=== PATIENT | male | born 1945 | race Caucasian/White ===

== ENCOUNTER → 2018-03-31 | Outpatient (CLI) | payer OTHER | LOC: FIMAGING 13:42 | PROVIDERS: ATTEND Orthopaedic Surgery | DX: Z01.818 Encounter for other preprocedural examination (principal); M17.11 Unilateral primary osteoarthritis, right knee ==

== ENCOUNTER 2018-04-26 05:57 | Observation (INO) | payer OTHER ==
[2018-04-26] MEDS ORDERED: ROPIVACAINE 0.2% 80 MG, EPINEPHrine 0.2 MG, KETOROLAC TROMETHAMINE 30 MG in SYRINGE 0 ML IU ONE (06:00)
[2018-04-26] MEDS ORDERED: TRANEXAMIC ACID 3,000 MG in NS (SYRINGE) 50 ML IRR ONE (06:00)
[2018-04-26] MEDS ORDERED: ceFAZolin 2 GM/DEXTROSE 100 ML IV ONE (06:11)
[2018-04-26] MEDS ORDERED: ACETAMINOPHEN 325 MG TAB PO ONE (06:11)
[2018-04-26] MEDS ORDERED: FAMOTIDINE 20 MG TAB PO ONE (06:11)
[2018-04-26] MEDS ORDERED: LR 1,000 ML IV ONE (06:12)
[2018-04-26] MEDS ORDERED: LIDOCAINE 1% 2 ML INJ ID PRN (06:12)
[2018-04-26] MEDS ORDERED: TRANEXAMIC ACID 3,000 MG/50 ML BAG IRR ONE (06:41)
[2018-04-26] MEDS ORDERED: MIDAZOLAM 2 MG/2 ML VIAL ONE (06:59)
[2018-04-26] MEDS ORDERED: MIDAZOLAM 2 MG/2 ML VIAL IVP ONE (07:01)
--- NOTE | 2018-04-26 07:02 | PDANEPAE ---
ANE History of Present Illness r knee oa ANE Past Medical History - Cardiovascular History Hx Hypertension: Yes Hx Arrhythmias: No Hx Chest Pain: No Hx Coronary Artery / Peripheral Vascular Disease: No Hx CHF / Valvular Disease: No Hx Palpitations: No Cardiovascular History Comment: HYPERLIPIDEMIA - Pulmonary History Hx COPD: No Hx Asthma/Reactive Airway Disease: No Hx Recent Upper Respiratory Infection: No Hx Oxygen in Use at Home: No Hx Sleep Apnea: No Sleep Apnea Screening Result - Last Documented: Positive - Neurologic History Hx Cerebrovascular Accident: No Hx Seizures: No Hx Dementia: No Neurologic History Comment: PERIHERAL NEUROPATHY L FOOT - Endocrine History Hx Diabetes: Yes Endocrine History Comment: DM II. A1C FROM 7.7 DOWN TO 6.4 IN 2 MONTHS - Renal History Hx Renal Disorders: No Renal History Comment: KIDNEY INF IN PAST - Liver History Hx Hepatic Disorders: No Hepatic History Comment: CHOLECYSTECTOMY - Neurological & Psychiatric Hx Hx Neurological and Psychiatric Disorders: No - Cancer History Hx Cancer: Yes Cancer History Comment: SKIN CA REMOVAL X2 - Congenital Disorder History Hx Congenital Disorders: No - GI History Hx Gastrointestinal Disorders: No - Other Health History Other Health History: ENCEPHALITIS 1964 - Chronic Pain History Chronic Pain: Yes (R KNEE) - Surgical History Prior Surgeries: CHOLECYSTECTOMY. SCOPE ACL L. TUMOR SALIVA GLANDS. FX ANKLE REPAIR L ANE Review of Systems Review of Systems: - Exercise capacity METS (RN): 5 METS ANE Patient History - Allergies Allergies/Adverse Reactions: No Known Allergies Allergy (Verified 07/17/15 19:24) - Home Medications Home Medications: Metoprolol Tartrate [Lopressor 100 mg (*)] 100 mg PO HS 06/03/11 [Last Taken 1 Day Ago ~04/25/18] amLODIPine BESYLATE [Norvasc 10 mg (*)] 10 mg PO DAILY 06/03/11 [Last Taken 09/03 05:00] metFORMIN HCL [Glucophage 500 mg (*)] 500 mg PO DAILY 07/17/15 [Last Taken 2 Days Ago ~04/24/18] Aspirin [Aspirin 81mg (*)] 81 mg PO HS 03/22/18 [Last Taken 1 Week Ago ~04/19/18 ] Cyanocobalamin [Vitamin B12 (*)] 1,000 mcg PO DAILY 03/22/18 [Last Taken 2 Weeks Ago ~04/12/18] Doxazosin Mesylate 6 mg PO HS 03/22/18 [Last Taken 1 Day Ago ~04/25/18] Glucosamine/Chondroitin [Glucosamine/Chondroitin (*)] 1 each PO BID 03/22/18 [ Last Taken 2 Weeks Ago ~04/12/18] Herbals/Supplements -Info Only 1 ea PO DAILY 03/22/18 [Last Taken 2 Weeks Ago ~ 04/12/18] Insulin NPH Hum/Reg Insulin Hm [Novolin 70-30 100 Unit/ml Vial] 50 unit SQ DAILY 03/22/18 [Last Taken 04/25/18 17:00] Insulin NPH Hum/Reg Insulin Hm [Novolin 70-30 100 Unit/ml Vial] 52 unit SQ DAILY @1830 03/22/18 [Last Taken Unknown] Losartan/Hydrochlorothiazide [Losartan-Hctz 100-25 mg Tab] 1 each PO DAILY 03/22 [Last Taken 1 Day Ago ~04/25/18] Multivitamins [Multivitamin (*)] 1 each PO DAILY 03/22/18 [Last Taken 2 Weeks Ago ~04/12/18] - NPO status NPO Since - Liquids (Date): 04/25/18 NPO Since - Liquids (Time): 22:30 NPO Since - Solids (Date): 04/25/18 NPO Since - Solids (Time): 18:30 - Smoking Hx Smoking Status: Never smoked - Family Anes Hx Family Hx Anesthesia Complications: NEG ANE Labs/Vital Signs - Vital Signs Blood Pressure: 140/79 Heart Rate: 64 Respiratory Rate: 18 O2 Sat (%): 96 Height: 189.23 cm Weight: 115.212 kg ANE Physical Exam - Airway Neck exam: FROM Mallampati Score: Class 2 Mouth exam: normal dental/mouth exam - Pulmonary Pulmonary: no respiratory distress - Cardiovascular Cardiovascular: regular rate and rhythym - ASA Status ASA Status: II ANE Anesthesia Plan Anesthesia Plan: MAC, spinal Regional Anesthesia: adductor canal FNB
[2018-04-26] MEDS ORDERED: fentaNYL 100 MCG/2 ML INJ ONE (07:07)
[2018-04-26] MEDS ORDERED: ONDANSETRON 4 MG/2 ML VIAL ONE (07:07)
[2018-04-26] MEDS ORDERED: PROPOFOL/EMULSION 500 MG/50 ML BOTTLE IV ONE (07:07)
[2018-04-26] MEDS ORDERED: DEXAMETHASONE 4 MG/ML VIAL ONE (07:07)
--- NOTE | 2018-04-26 07:15 | PDHPUP ---
History & Physical Update H&P update statement: This history and physical update is based on an assessment of the patient which was completed after admission or registration (within 24 hours), but prior to the surgery/procedure. H&P update: H&P reviewed & patient examined, no change in patient's condition since H&P completed
[2018-04-26] MEDS ORDERED: VANCOMYCIN 1 GM VIAL ONE (07:46)
[2018-04-26] MEDS ORDERED: fentaNYL 100 MCG/2 ML INJ IVP PRN (07:48)
[2018-04-26] MEDS ORDERED: oxyCODONE IR 5 MG TAB PO PRN (07:48)
[2018-04-26] MEDS ORDERED: ONDANSETRON 4 MG/2 ML VIAL IVP PRN ×2 (07:48→08:45)
[2018-04-26] MEDS ORDERED: NALOXONE HCL 0.4 MG/ML INJ IVP PRN (07:48)
[2018-04-26] MEDS ORDERED: HYDROmorphONE/DILAUDID 1 MG/ML INJ IVP PRN (07:48)
[2018-04-26] MEDS ORDERED: PROMETHAZINE HCL 25 MG/ML INJ IVP PRN ×2 (07:48→08:45)
[2018-04-26] MEDS ORDERED: ROPIVACAINE HCL 150 MG/30 ML INJ ONE (08:14)
[2018-04-26] MEDS ORDERED: DIPHENOXYLATE/ATROPINE LOMOTIL 1 TAB PO PRN (08:45)
[2018-04-26] MEDS ORDERED: D50W 25 GM/50 ML SYR IVP PRN (08:45)
[2018-04-26] MEDS ORDERED: BISACODYL 10 MG SUPP PR PRN (08:45)
[2018-04-26] MEDS ORDERED: TEMAZEPAM 15 MG CAP PO PRN (08:45)
[2018-04-26] MEDS ORDERED: LACTULOSE 20 GM/30 ML UDCUP PO PRN (08:45)
[2018-04-26] MEDS ORDERED: METOCLOPRAMIDE 10 MG/2 ML VIAL IVP PRN (08:45)
[2018-04-26] MEDS ORDERED: POLYETHYLENE GLYCOL 3350 17 GM PKT PO PRN (08:45)
[2018-04-26] MEDS ORDERED: CYCLOBENZAPRINE 10 MG TAB PO PRN (08:45)
[2018-04-26] MEDS ORDERED: ONDANSETRON DISINTEGRATING 4 MG TAB PO PRN (08:45)
[2018-04-26] MEDS ORDERED: diphenhydrAMINE 25 MG CAP PO PRN (08:45)
[2018-04-26] MEDS ORDERED: PROMETHAZINE HCL 25 MG SUPPR PR PRN (08:45)
[2018-04-26] MEDS ORDERED: MAGNESIUM HYDROXIDE 30 ML UDCUP PO PRN (08:45)
--- NOTE | 2018-04-26 08:45 | POSTOPPROG ---
Post Op Note Date of Operation: 04/26/18 Surgeon: Kadi Winstno Shipping Assistant: soha winston Anesthesiologist: dr. carmen Anesthesia: Spinal, Other (Specify) (adductor canal block) Pre-op Diagnosis: right knee OA Post-op Diagnosis: same Indication: right knee pain Procedure: R TKA robot assisted, computer mohamud and sensor assisted Findings: severe knee OA Inf/Abcess present in the surg proc area at time of surgery?: No EBL: 50-100
[2018-04-26] MEDS ORDERED: LR 1,000 ML IV SCH (09:00)
--- NOTE | 2018-04-26 09:03 | POSTANESTH ---
Post Anesthetic Evaluation Cardiovascular Status: Normal, Stable Respiratory Status: Normal, Stable Level of Consciousness/Mental Status: Can Participate in Eval Pain Control: Adequate, Prn Tx Ordered Nausea/Vomiting Control: Adequate, Prn Tx Ordered Complications Possibly Related to Anesthesia: None Noted
[2018-04-26] MEDS: ACETAMINOPHEN 325 MG TAB PO SCH ×3 (12:32→23:57)
[2018-04-26] MEDS: INSULIN REGULAR HUMAN 100 UNIT/ML UNIT SC SCH ×3 (12:34→21:10)
[2018-04-26] MEDS: INSULIN 70/30 HUMAN 100 UNIT/ML SYR SC SCH ×2 (12:45→18:26)
[2018-04-26] MEDS: SENNOSIDES/DOCUSATE SODIUM TAB PO SCH ×2 (12:45→21:04)
[2018-04-26] MEDS: ceFAZolin 2 GM/DEXTROSE 100 ML IV SCH ×2 (14:14→21:05)
[2018-04-26] MEDS: metFORMIN HCL 500 MG TAB PO SCH (15:54)
[2018-04-26] MEDS: oxyCODONE IR 5 MG TAB PO PRN (18:26)
[2018-04-26] MEDS ORDERED: DOXAZOSIN MESYLATE 4 MG TAB PO SCH (21:00)
[2018-04-26] MEDS ORDERED: METOPROLOL TARTRATE 100 MG TAB PO SCH (21:00)
[2018-04-26] MEDS: FAMOTIDINE 20 MG TAB PO SCH (21:04)
[2018-04-26] MEDS: ASPIRIN 81 MG CHEWABLE TAB PO SCH (21:04)
[2018-04-27] MEDS: ACETAMINOPHEN 325 MG TAB PO SCH (05:45)
[2018-04-27 07:25] VITALS: BP 150/99
[2018-04-27] MEDS: INSULIN REGULAR HUMAN 100 UNIT/ML UNIT SC SCH (07:59)
[2018-04-27] MEDS: ASPIRIN 81 MG CHEWABLE TAB PO SCH (08:09)
[2018-04-27] MEDS: metFORMIN HCL 500 MG TAB PO SCH (08:09)
[2018-04-27] MEDS: oxyCODONE IR 5 MG TAB PO PRN (08:10)
[2018-04-27] MEDS: SENNOSIDES/DOCUSATE SODIUM TAB PO SCH (08:11)
[2018-04-27] MEDS: FAMOTIDINE 20 MG TAB PO SCH (08:12)
[2018-04-27] MEDS: INSULIN 70/30 HUMAN 100 UNIT/ML SYR SC SCH ×2 (08:13→08:41)
[2018-04-27] MEDS ORDERED: LOSARTAN/HCTZ 50/12.5 1 TAB PO SCH (09:00)
--- NOTE | 2018-04-27 09:14 | SOAPPROG ---
SOAP Progress Note Assessment/Plan: Assessment: Patient is doing well POD 1 s/p R TKA Pain management: pain is well controlled on oral pain meds. VTE ppx: recommend aspirin 81 mg BID for 4 weeks, cont MINNIE and SCDs Anemia: level is expected initially postop. Asymptomatic. Continue to monitor D/c planning: d/c to home today pending release from PT Plan: 04/27/18 09:14 Subjective: Widge is doing well, denies SOB, chest pain and N/V. Objective: Vital Signs Temp Pulse Resp BP Pulse Ox 36.8 C 59 L 16 150/99 H 95 04/27/18 07:23 04/27/18 07:23 04/27/18 07:23 04/27/18 08:10 04/27/18 07:23 Laboratory Results 04/27/18 04:26 04/26/18 04/27/18 04/28/18 05:59 05:59 05:59 Intake Total 2050 Output Total 1150 Balance 900 RLE: incision dressing is clean and dry, NVI, +pf/df ICD10 Worksheet Patient Problems: Problems Problem Status Onset Primary localized osteoarthritis of right knee Acute
--- NOTE | 2018-04-27 10:56 | GDS ---
[f rep st] DISCHARGE SUMMARY ADMISSION DIAGNOSIS: Right knee osteoarthritis. DISCHARGE DIAGNOSIS: Right knee osteoarthritis. PROCEDURE: Right total knee arthroplasty, robotic-assisted, with computer navigation. VTE PROPHYLAXIS: Recommend aspirin 81 mg twice daily for 4 weeks. BRIEF DESCRIPTION OF HOSPITAL STAY: Patient was admitted for an elective joint arthroplasty. The pa gerardo tolerated the procedure well and has passed physical therapy. The patient was given appropriat e antibiotic prophylaxis and venous thromboembolism prophylaxis. The patient's pain was well control led on oral pain medication, patient was holding down food, and had urinated. Decision was made to d ischarge the patient. The patient was given post-operative prescriptions pre-operatively. PLAN: Follow up as scheduled in Dr. Li's office May 18 at 10:15. /[id number]/MODL
--- NOTE | 2018-04-27 11:01 | GOP ---
[f rep st] OPERATIVE REPORT DATE OF OPERATION: 04/26/2018 SURGEON: René Li MD DRILLING FLUIDS SPECIALIST: TROY Kate. ANESTHESIA: Spinal. PREOPERATIVE DIAGNOSIS: Right knee osteoarthritis. POSTOPERATIVE DIAGNOSIS: Right knee osteoarthritis. PROCEDURE PERFORMED: Right total knee arthroplasty with computer navigation, robotic assist. FINDINGS: Severe medial and patellofemoral osteoarthritis. ESTIMATED BLOOD LOSS: 30 mL. INDICATIONS: The patient is a 72-year-old male with severe and progressive pain and deformity of the right knee unresponsive to conservative care. The risks and benefits of surgical intervention were explained in detail. DESCRIPTION OF PROCEDURE: The patient was brought to the operative room and placed on the table in the supine position. Spinal anesthesia was induced without difficulty. A pneumatic tourniquet was applied about the right proximal thigh, and the leg was prepped and draped in a sterile fashion. The leg saldaña was applied. After exsanguination by elevation the tourniquet was inflated to 250 mmHg. Incision was made anterior medial from the tibial tuberosity to a point 2 cm proximal to the superior pole of the patella. Medial parapatellar arthrotomy was carried out from the superior pole of the patella and posteriorly in line with the fibers of the Type II VMO. The medial collateral ligament was elevated and the infrapatellar fat pad was resected. The patella was everted and the articular surface was excised. A 40 mm patellar button was placed. Attention was turned first to the distal aspect of the femur. After exposure of the femur, 2 half pins were placed for fixation of the femoral array. In a similar fashion, 2 pins were placed anteromedial on the tibia for fixation of the tibial array. External land marking and registration of the hip center was performed without difficulty. Internal femoral and tibial registration was carried out without difficulty and the femoral and tibial checkpoints were placed and verified for accuracy. Attention was turned to the femur. The foot print for the size 6 femoral component was cut with the saw using the [employer] robotic system and verified for accuracy against the CT based plan. In a similar fashion, the saw was used to cut the footprint for the size 7 tibial component using the [employer] system and verified for accuracy against the CT based plan. The tibial articular surface was excised without difficulty, followed by the intercondylar box cut. The knee was extended and the remnants of the medial and lateral meniscus were excised. The posterior capsule was injected with ropivacaine, epinephrine and Toradol. A size 7 tibial tray was positioned. Trial reduction was then carried out. There was excellent range of motion, alignment, and stability using the 7 x 9 mm polyethylene. All trials were then removed. The joint was thoroughly irrigated and carefully dried. The X3 PressFit patella and femoral components, cemented tibial component were implanted. The permanent 9 mm polyethylene was placed without difficulty. The tourniquet was deflated and all bleeders were coagulated. The wound was thoroughly irrigated and closed using interrupted sutures of 2-0 Vicryl for the joint capsule. The subcu was closed with 3-0 Vicryl and the skin with 4-0 Monocryl. Dermabond and Steri-Strips were applied followed by a compressive dressing. The patient was then moved from the operating room to the recovery room in good condition, having tolerated the procedure well. /[id number]/MODL MTDD
== END 2018-04-27 11:21 | disposition home or self-care (01) ==
LOC: F3N 05:57
PROVIDERS: ADMIT Orthopaedic Surgery; ATTEND Orthopaedic Surgery
PROC: 8E0Y0CZ Robotic Assisted Procedure of Lower Extremity, Open Approach (ICD-10-PCS; principal; 2018-04-26 07:15)
PROC: 8E0YXBG Computer Assisted Procedure of Lower Extremity, With Computerized Tomography (ICD-10-PCS; principal; 2018-04-26 07:15)
PROC: 0SRC069 Replacement of Right Knee Joint with Oxidized Zirconium on Polyethylene Synthetic Substitute, Cemented, Open Approach (ICD-10-PCS; principal; 2018-04-26 07:15)
DX: M17.11 Unilateral primary osteoarthritis, right knee (principal); E78.5 Hyperlipidemia, unspecified; E11.43 Type 2 diabetes mellitus with diabetic autonomic (poly)neuropathy; G62.9 Polyneuropathy, unspecified; Z85.828 Personal history of other malignant neoplasm of skin
CPT/HCPCS: 27447; 73560; 88311; 97110; 97116; 97161; C1713; C1776; G0378; J0171; J0690; J1100; J1815; J1885; J2250; J2405; J2704; J2795; J3010; J3370

== ENCOUNTER → 2018-08-08 | Outpatient (CLI) | payer OTHER | LOC: FIMAGING 09:55 | PROVIDERS: ATTEND Orthopaedic Surgery | DX: M17.12 Unilateral primary osteoarthritis, left knee (principal) ==

== ENCOUNTER 2018-08-23 06:29 | Observation (INO) | payer OTHER ==
[~2018-08-23 06:29] MED LIST: ROPIVACAINE 0.2% 80 MG, EPINEPHrine 0.2 MG in SYRINGE 0 ML IU ONE; TRANEXAMIC ACID 3,000 MG in NS (SYRINGE) 50 ML IRR ONE
[2018-08-23] MEDS ORDERED: FAMOTIDINE 20 MG TAB PO ONE (06:41)
[2018-08-23] MEDS ORDERED: DEXAMETHASONE 4 MG/ML VIAL IVP ONE (06:41)
[2018-08-23] MEDS ORDERED: ACETAMINOPHEN 325 MG TAB PO ONE (06:41)
[2018-08-23] MEDS ORDERED: ceFAZolin 2 GM/DEXTROSE 100 ML IV ONE (06:41)
[2018-08-23] MEDS ORDERED: LR 1,000 ML IV ONE (06:42)
[2018-08-23] MEDS ORDERED: LIDOCAINE 1% 2 ML INJ ID PRN (06:42)
[2018-08-23] MEDS ORDERED: TRANEXAMIC ACID 3,000 MG/50 ML BAG IRR ONE (06:56)
[2018-08-23] MEDS ORDERED: VANCOMYCIN 1 GM VIAL ONE (07:23)
[2018-08-23] MEDS ORDERED: PROPOFOL/EMULSION 500 MG/50 ML BOTTLE IV ONE (08:55)
[2018-08-23] MEDS ORDERED: ONDANSETRON 4 MG/2 ML VIAL IVP PRN ×2 (09:16→10:41)
[2018-08-23] MEDS ORDERED: NALOXONE HCL 0.4 MG/ML INJ IVP PRN (09:16)
[2018-08-23] MEDS ORDERED: ALBUTEROL 3 ML DEYVIAL IH PRN (09:16)
--- NOTE | 2018-08-23 09:16 | PDANEPAE ---
ANE Past Medical History - Cardiovascular History Hx Hypertension: Yes Hx Arrhythmias: No Hx Chest Pain: No Hx Coronary Artery / Peripheral Vascular Disease: No Hx CHF / Valvular Disease: No Hx Palpitations: No Cardiovascular History Comment: HYPERLIPIDEMIA - Pulmonary History Hx COPD: No Hx Asthma/Reactive Airway Disease: No Hx Recent Upper Respiratory Infection: No Hx Oxygen in Use at Home: No Hx Sleep Apnea: No Sleep Apnea Screening Result - Last Documented: Positive Pulmonary History Comment: keven triggers - Neurologic History Hx Cerebrovascular Accident: No Hx Seizures: No Hx Dementia: No Neurologic History Comment: PERIHERAL NEUROPATHY L FOOT - Endocrine History Hx Diabetes: Yes Endocrine History Comment: DM II. A1C FROM 7.7 DOWN TO 6.4 IN 2 MONTHS - Renal History Hx Renal Disorders: No Renal History Comment: KIDNEY INF IN PAST - Liver History Hx Hepatic Disorders: No Hepatic History Comment: CHOLECYSTECTOMY - Neurological & Psychiatric Hx Hx Neurological and Psychiatric Disorders: No - Cancer History Hx Cancer: Yes Cancer History Comment: SKIN CA REMOVAL X2 - Congenital Disorder History Hx Congenital Disorders: No - GI History Hx Gastrointestinal Disorders: No Gastrointestinal History Comment: constipation - Other Health History Other Health History: ENCEPHALITIS 1964 - Chronic Pain History Chronic Pain: Yes (R KNEE) - Surgical History Prior Surgeries: CHOLECYSTECTOMY. SCOPE ACL L. TUMOR SALIVA GLANDS. FX ANKLE REPAIR L ANE Review of Systems Review of Systems: - Exercise capacity METS (RN): 4 METS ANE Patient History - Allergies Allergies/Adverse Reactions: No Known Allergies Allergy (Verified 08/01/18 10:28) - Home Medications Home Medications: Metoprolol Tartrate [Lopressor 100 mg (*)] 100 mg PO HS 06/03/11 [Last Taken 04/03 20:00] amLODIPine BESYLATE [Norvasc 10 mg (*)] 10 mg PO DAILY 06/03/11 [Last Taken 05/03 06:00] metFORMIN HCL [Glucophage 500 mg (*)] 500 mg PO DAILY 07/17/15 [Last Taken 08/21] Cyanocobalamin [Vitamin B12 (*)] 1,000 mcg PO DAILY 03/22/18 [Last Taken ] Doxazosin Mesylate 6 mg PO HS 03/22/18 [Last Taken 08/22/18 20:00] Glucosamine/Chondroitin [Glucosamine/Chondroitin (*)] 1 each PO BID 03/22/18 [ Last Taken 08/09/18] Losartan/Hydrochlorothiazide [Losartan-Hctz 100-25 mg Tab] 1 each PO DAILY 03/22 [Last Taken 08/23/18 06:00] Multivitamins [Multivitamin (*)] 1 each PO DAILY 03/22/18 [Last Taken 08/09/18] Acetaminophen [Tylenol 325mg (*)] 650 mg PO Q6HRS PRN 07/28/18 [Last Taken 08/21] Aspirin [Aspirin 81mg (*)] 81 mg PO DAILY 07/28/18 [Last Taken 08/16/18] Insulin NPH Hum/Reg Insulin Hm [Novolin 70-30 100 Unit/ml Vial] 50 unit SQ DAILY 07/28/18 [Last Taken 08/22/18 08:00] Insulin NPH Hum/Reg Insulin Hm [Novolin 70-30 100 Unit/ml Vial] 56 unit SQ DAILY @1830 07/28/18 [Last Taken 08/22/18 18:30] Inulin/Chromium Picolinate [Fiber Gummies] 1 each PO DAILY 07/28/18 [Last Taken 08/22/18] Sennosides/Docusate Sodium [Senokot-S] 1 - 2 tab PO BID PRN 07/28/18 [Last Taken 08/23/18] - NPO status NPO Since - Liquids (Date): 08/23/18 NPO Since - Liquids (Time): 06:00 NPO Since - Solids (Date): 08/22/18 NPO Since - Solids (Time): 21:00 - Smoking Hx Smoking Status: Never smoked - Family Anes Hx Family Hx Anesthesia Complications: NEG ANE Labs/Vital Signs - Vital Signs Blood Pressure: 121/76 Heart Rate: 55 Respiratory Rate: 11 O2 Sat (%): 97 Height: 189.23 cm Weight: 115.212 kg ANE Physical Exam - Airway Mallampati Score: Class 2 - Pulmonary Pulmonary: no respiratory distress - Cardiovascular Cardiovascular: regular rate and rhythym - ASA Status ASA Status: II ANE Anesthesia Plan Anesthesia Plan: spinal Regional Anesthesia: single shot NB
[2018-08-23] MEDS ORDERED: PROPOFOL 200 MG/20 ML VIAL ONE ×2 (09:45→10:13)
[2018-08-23] MEDS ORDERED: DIPHENOXYLATE/ATROPINE LOMOTIL 1 TAB PO PRN (10:41)
[2018-08-23] MEDS ORDERED: PROMETHAZINE HCL 25 MG/ML INJ IVP PRN (10:41)
[2018-08-23] MEDS ORDERED: PROMETHAZINE HCL 25 MG SUPPR PR PRN (10:41)
[2018-08-23] MEDS ORDERED: METOCLOPRAMIDE 10 MG/2 ML VIAL IVP PRN (10:41)
[2018-08-23] MEDS ORDERED: LACTULOSE 20 GM/30 ML UDCUP PO PRN (10:41)
[2018-08-23] MEDS ORDERED: D50W 25 GM/50 ML SYR IVP PRN (10:41)
[2018-08-23] MEDS ORDERED: diphenhydrAMINE 25 MG CAP PO PRN (10:41)
[2018-08-23] MEDS ORDERED: MAGNESIUM HYDROXIDE 30 ML UDCUP PO PRN (10:41)
[2018-08-23] MEDS ORDERED: ONDANSETRON DISINTEGRATING 4 MG TAB PO PRN (10:41)
[2018-08-23] MEDS ORDERED: POLYETHYLENE GLYCOL 3350 17 GM PKT PO PRN (10:41)
[2018-08-23] MEDS ORDERED: BISACODYL 10 MG SUPP PR PRN (10:41)
[2018-08-23] MEDS ORDERED: TEMAZEPAM 15 MG CAP PO PRN (10:41)
--- NOTE | 2018-08-23 10:41 | POSTOPPROG ---
Post Op Note Date of Operation: 08/23/18 Surgeon: Kadi Winston Transaction Processor: soha winston PA-C Anesthesiologist: dr. bailey Anesthesia: Spinal, Other (Specify) (adductor canal block) Pre-op Diagnosis: Left knee OA Post-op Diagnosis: same Indication: left knee pain Procedure: L TKA robot assisted and sensor assisted Findings: severe knee OA Inf/Abcess present in the surg proc area at time of surgery?: No EBL: 50-100
[2018-08-23] MEDS ORDERED: NS 1,000 ML IV SCH (10:45)
[2018-08-23] MEDS ORDERED: fentaNYL 100 MCG/2 ML INJ ONE (11:03)
[2018-08-23] MEDS: fentaNYL 100 MCG/2 ML INJ IVP PRN ×2 (11:05→11:43)
[2018-08-23] MEDS: CYCLOBENZAPRINE 10 MG TAB PO PRN ×2 (13:05→21:54)
[2018-08-23] MEDS: ACETAMINOPHEN 325 MG TAB PO SCH ×2 (13:05→17:58)
[2018-08-23] MEDS: INSULIN REGULAR HUMAN 100 UNIT/ML UNIT SC SCH ×3 (15:43→22:48)
[2018-08-23] MEDS: LOSARTAN/HCTZ 50/12.5 1 TAB PO SCH (16:15)
[2018-08-23] MEDS: ceFAZolin 2 GM/DEXTROSE 100 ML IV SCH (17:57)
[2018-08-23] MEDS: oxyCODONE IR 5 MG TAB PO PRN (18:03)
[2018-08-23] MEDS ORDERED: INSULIN 70/30 HUMAN 100 UNIT/ML SYR SC SCH (18:30)
[2018-08-23] MEDS ORDERED: METOPROLOL TARTRATE 100 MG TAB PO SCH (21:00)
[2018-08-23] MEDS: ASPIRIN 81 MG CHEWABLE TAB PO SCH (21:40)
[2018-08-23] MEDS: SENNOSIDES/DOCUSATE SODIUM TAB PO SCH (21:40)
[2018-08-24] MEDS: ACETAMINOPHEN 325 MG TAB PO SCH ×2 (00:19→05:31)
[2018-08-24] MEDS: ceFAZolin 2 GM/DEXTROSE 100 ML IV SCH (00:20)
[2018-08-24 07:33] VITALS: BP 129/71
[2018-08-24] MEDS: INSULIN REGULAR HUMAN 100 UNIT/ML UNIT SC SCH (07:56)
[2018-08-24] MEDS: SENNOSIDES/DOCUSATE SODIUM TAB PO SCH (07:59)
[2018-08-24] MEDS: ASPIRIN 81 MG CHEWABLE TAB PO SCH (07:59)
[2018-08-24] MEDS: LOSARTAN/HCTZ 50/12.5 1 TAB PO SCH (07:59)
[2018-08-24] MEDS: oxyCODONE IR 5 MG TAB PO PRN (08:04)
--- NOTE | 2018-08-24 08:28 | SOAPPROG ---
SOAP Progress Note Assessment/Plan: Assessment: Patient is doing well POD 1 s/p L TKA Pain management: pain is well controlled on oral pain meds. VTE ppx: recommend aspirin 81 mg BID for 4 weeks, cont MINNIE and SCDs D/c planning: d/c to home today pending release from PT Plan: 08/24/18 08:27 Subjective: patient is doing well, denies SOb, chest pain and N/v Objective: Vital Signs Temp Pulse Resp BP Pulse Ox 37.1 C 63 16 129/71 H 96 08/24/18 07:32 08/24/18 07:32 08/24/18 07:32 08/24/18 08:01 08/24/18 07:32 Laboratory Results 08/24/18 04:20 08/24/18 04:20 08/23/18 08/24/18 08/25/18 05:59 05:59 05:59 Intake Total 3457 Output Total 3030 300 Balance 427 -300 LLE; incision dressing is clean and dry, NVI, +pf/df ICD10 Worksheet Patient Problems: Problems Problem Status Onset Primary localized osteoarthritis of left knee Acute Primary localized osteoarthritis of right knee Acute
[2018-08-24] MEDS ORDERED: metFORMIN HCL 500 MG TAB PO SCH (09:00)
[2018-08-24] MEDS ORDERED: FAMOTIDINE 20 MG TAB PO SCH (09:00)
[2018-08-24] MEDS ORDERED: INSULIN 70/30 HUMAN 100 UNIT/ML SYR SC SCH (09:00)
--- NOTE | 2018-08-24 09:37 | ASMTLACE ---
LACE Length of stay for Answers: 2 days current admission Acuity / Level of Answers: No Care: Did the patient have an inpatient admission? Comorbidities - select Answers: Diabetes (uncontrolled or all that apply controlled) Opioid dependence / Chronic pain Other Notes: HTN; HLD # of Emergency department Answers: 0 visits in the last 6 months Score: 8 Date Signed: 08/24/2018 09:36 AM Electronically Signed By:MICHAEL Kang
--- NOTE | 2018-08-24 10:20 | GOP ---
DATE OF OPERATION: 08/23/2018 SURGEON: René Li MD ARCHEOLOGY PROFESSOR: Kaylen Li, TROY. ANESTHESIA: Spinal. PREOPERATIVE DIAGNOSIS: Left knee osteoarthritis. POSTOPERATIVE DIAGNOSIS: Left knee osteoarthritis. PROCEDURE PERFORMED: Left total knee arthroplasty with computer navigation, robotic assist. FINDINGS: ESTIMATED BLOOD LOSS: 30 cc. INDICATIONS: The patient is a 72-year-old male with severe and progressive pain and deformity of the left knee unresponsive to conservative care. The risks and benefits of surgical intervention were e xplained in detail. DESCRIPTION OF PROCEDURE: The patient was brought to the operative room and placed on the table in t he supine position. Spinal anesthesia was induced without difficulty. A pneumatic tourniquet was appl ied about the left proximal thigh, and the leg was prepped and draped in a sterile fashion. The leg h older was applied. After exsanguination by elevation the tourniquet was inflated to 250 mmHg. Incision was made anterior medial from the tibial tuberosity to a point 2 cm proximal to the superior pole of the patella. Medial parapatellar arthrotomy was carried out from the superior pole of the pa tella and posteriorly in line with the fibers of the Type II VMO. The medial collateral ligament was elevated and the infrapatellar fat pad was resected. The patella was everted and the articular surface was excised. A 40 mm patellar button was placed. Attention was turned first to the distal aspect of the femur. After exposure of the femur, 2 half pi ns were placed for fixation of the femoral array. In a similar fashion, 2 pins were placed anteromed ial on the tibia for fixation of the tibial array. External land marking and registration of the hip center were performed without difficulty. Internal femoral and tibial registration were carried out without difficulty and the femoral and tibial checkpoints were placed and verified for accuracy. Attention was turned to the femur. The foot print for the size 6 femoral component was cut with the saw using the [employer] robotic system and verified for accuracy against the CT based plan. In a similar f ashion, the saw was used to cut the footprint for the size 7 tibial component using the [employer] system an d verified for accuracy against the CT based plan. The tibial articular surface was excised without d ifficulty, followed by the intercondylar box cut. The knee was extended and the remnants of the medial and lateral meniscus were excised. The posterior capsule was injected with ropivacaine, epinephrine and Toradol. A size 7 tibial tray was positioned . Trial reduction was then carried out. There was excellent range of motion, alignment, and stability using the 7 x 9 mm polyethylene. All trials were then removed. The joint was thoroughly irrigated and carefully dried. The cemented co mponents were implanted. The permanent 9 mm polyethylene was placed without difficulty. The tourniquet was deflated and all bleeders were coagulated. The wound was thoroughly irrigated and closed using interrupted sutures of 2-0 Vicryl for the joint capsule. The subcu was closed with 3-0 V icryl and the skin with 4-0 Monocryl. Dermabond and Steri-Strips were applied followed by a compress ana dressing. The patient was then moved from the operating room to the recovery room in good conditi on, having tolerated the procedure well. PATHOLOGY: Severe medial patellofemoral osteoarthritis. /[id number]/MODL
[2018-08-24] MEDS ORDERED: DOXAZOSIN MESYLATE 4 MG TAB PO SCH (21:00)
== END 2018-08-24 09:56 | disposition home or self-care (01) ==
LOC: F3N 06:29
PROVIDERS: ADMIT Orthopaedic Surgery; ATTEND Orthopaedic Surgery
DX: M17.12 Unilateral primary osteoarthritis, left knee (principal)
CPT/HCPCS: 27447; 73560; 88311; 97110; 97116; 97161; C1713; C1776; G0378; J0171; J0690; J1100; J1815; J2704; J2795; J3010; J3370